=== PATIENT | female | born 1990 | race African-American/Black ===

== ENCOUNTER 2018-12-21 02:55 | Emergency (ER) | payer MEDICAID ==
[~2018-12-21] VITALS: Ht 167.6 cm; Wt 66.0 kg
[2018-12-21] MEDS ORDERED: KETOROLAC 60MG/2ML VIAL IM STA (05:46)
[2018-12-21 06:26] VITALS: BP 127/65
== END 2018-12-21 06:27 | disposition home or self-care (01) ==
LOC: ER 02:55
DX: S60.052A Contusion of left little finger without damage to nail, initial encounter (principal); X58.XXXA Exposure to other specified factors, initial encounter; Y93.89 Activity, other specified; Y92.89 Other specified places as the place of occurrence of the external cause; Y99.8 Other external cause status
CPT/HCPCS: 81025; 96372; 99283; J1885

== ENCOUNTER 2019-09-30 03:03 | Emergency (ER) | payer MEDICAID ==
[~2019-09-30] VITALS: Ht 170.2 cm; Wt 72.2 kg
[2019-09-30] MEDS ORDERED: CEFTRIAXONE SODIUM 250 MG/VIAL IM ONE (06:00)
[2019-09-30] MEDS ORDERED: AZITHROMYCIN 500 MG TABLET PO ONE (06:00)
[2019-09-30] MEDS ORDERED: LIDOCAINE HCL 1% 20ML VIAL (Pyxis) INJ INFIL ONE (06:00)
[2019-09-30] MEDS ORDERED: HYDROCODONE/ACETAMINOPHEN 5/325MG TABLET PO ONE (06:15)
[2019-09-30 06:23] VITALS: BP 145/78
== END 2019-09-30 06:27 | disposition home or self-care (01) ==
LOC: ER 03:03
DX: J02.9 Acute pharyngitis, unspecified (principal); N34.2 Other urethritis; F17.210 Nicotine dependence, cigarettes, uncomplicated
CPT/HCPCS: 96372; 99283; J0696; J3490